=== PATIENT | female | born 1935 | race Caucasian/White ===

== ENCOUNTER 2017-10-22 11:16 | Inpatient (IN) | payer OTHER ==
[2017-10-22] MEDS ORDERED: SODIUM CHLORIDE 0.9% 1000ML 1,000 ML IV SCH (11:30)
[2017-10-22] MEDS ORDERED: DEXTROSE 1000 ML 1,000 ML IV SCH (11:45)
[2017-10-22 11:55] LABS: BASOPHILS % (AUTO) 1 % (0-3); EOSINOPHILS % (AUTO) 0 % (0-9); HEMATOCRIT 55 % (35-47); MEAN CORPUSCULAR HGB CONC 31.8 gm/dl (32.0-36.0); MONOCYTES % (AUTO) 7.3 % (0-12); NEUTROPHILS % (AUTO) 86.4 % (37-80)
[2017-10-22 12:10] LABS: MEAN CORPUSCULAR VOLUME 102 fL (81-99)
[2017-10-22] MEDS ORDERED: CEFTRIAXONE 1 GM PDS 1 GM in SODIUM CHLORIDE 0.9% 100 ML 100 ML IV ONE (12:32)
[2017-10-22] MEDS ORDERED: AZITHROMYCIN 500 MG PDS 500 MG in SODIUM CHLORIDE 0.9% 500 ML 500 ML IV ONE (12:33)
[2017-10-22] MEDS ORDERED: CEFTRIAXONE 1 GM PDS ONE (12:53)
[2017-10-22] MEDS ORDERED: SODIUM CHLORIDE 0.9% 500 ML 500 ML IV ONE (14:15)
[2017-10-22] MEDS ORDERED: AZITHROMYCIN 500 MG PDS IV ONE (14:15)
[2017-10-22] MEDS ORDERED: ACETAMINOPHEN 325 MG PO PRN (15:19)
[2017-10-22] MEDS ORDERED: DILTIAZEM 5 MG/ML SOL IV ONE ×2 (15:34→16:46)
[2017-10-22] MEDS ORDERED: SODIUM CHLORIDE 0.9% 500 ML 500 ML IV SCH (15:45)
[2017-10-22] MEDS ORDERED: POTASSIUM CHLORIDE 2 MEQ/ML SOL IV ONE (15:59)
[2017-10-22] MEDS ORDERED: CAMPHOR TOP PRN (16:00)
[2017-10-22] MEDS ORDERED: ALUMINUM/MAGNESIUM 30 ML SUS PO PRN (16:00)
[2017-10-22] MEDS ORDERED: LOPERAMIDE HYDROCHLORIDE 2 MG CAP PO PRN (16:00)
[2017-10-22] MEDS ORDERED: MENTHOL TOP PRN (16:00)
[2017-10-22] MEDS ORDERED: ONDANSETRON 4 MG ODT PO PRN (16:00)
[2017-10-22] MEDS: SODIUM CHLORIDE 0.9% FLUSH 10 ML SOL IV PRN ×2 (16:12→17:00)
[2017-10-22] MEDS ORDERED: SODIUM CHLORIDE 0.9% 100 ML 100 ML IV ONE (16:46)
[2017-10-22] MEDS: DILTIAZEM 5 MG/ML 125 MG in SODIUM CHLORIDE 0.9% 100 ML 100 ML IV SCH (16:58)
[2017-10-22] MEDS ORDERED: MAGNESIUM HYDROXIDE 30 ML SUS PO SCH (17:00)
[2017-10-22] MEDS: SODIUM CHLORIDE 0.45% 1000 ML 1,000 ML with POTASSIUM CHLORIDE 2 MEQ/ML 20 MEQ IV SCH (18:25)
[2017-10-22] MEDS: BUSPIRONE HCL 5 MG TAB PO SCH (20:48)
[2017-10-22] MEDS: TRIAMCINOLONE 0.1% CREAM CRE TOP SCH (20:48)
[2017-10-22] MEDS ORDERED: RANITIDINE HCL 150 MG TAB PO SCH (21:00)
[2017-10-23] MEDS: ASCORBIC ACID/COPPER/VITAMIN SGL PO SCH ×3 (01:25→20:13)
[2017-10-23] MEDS: SODIUM CHLORIDE 0.45% 1000 ML 1,000 ML with POTASSIUM CHLORIDE 2 MEQ/ML 20 MEQ IV SCH ×2 (04:39→18:12)
[2017-10-23] MEDS ORDERED: DILTIAZEM 5 MG/ML SOL IV ONE ×5 (05:04→16:52)
[2017-10-23] MEDS ORDERED: SODIUM CHLORIDE 0.9% 100 ML 100 ML IV ONE ×4 (05:05→16:49)
[2017-10-23] MEDS: DILTIAZEM 5 MG/ML 125 MG in SODIUM CHLORIDE 0.9% 100 ML 100 ML IV SCH (05:39)
[2017-10-23 07:28] LABS: BASOPHILS % (AUTO) 1 % (0-3); EOSINOPHILS % (AUTO) 0 % (0-9); HEMATOCRIT 47 % (35-47); MEAN CORPUSCULAR HGB CONC 33.2 gm/dl (32.0-36.0); NEUTROPHILS % (AUTO) 82.3 % (37-80)
[2017-10-23 07:29] LABS: MEAN CORPUSCULAR VOLUME 101 fL (81-99)
[2017-10-23] MEDS: SODIUM CHLORIDE 0.9% FLUSH 10 ML SOL IV PRN ×4 (08:03→13:20)
[2017-10-23] MEDS: FUROSEMIDE 20 MG TAB PO SCH (08:56)
[2017-10-23] MEDS: FAMOTIDINE 20 MG TAB PO SCH ×2 (08:56→20:12)
[2017-10-23] MEDS: BUSPIRONE HCL 5 MG TAB PO SCH ×3 (08:56→20:12)
[2017-10-23] MEDS: AZITHROMYCIN 250 MG TAB PO SCH (08:57)
[2017-10-23] MEDS: MULTIVITAMIN2 1 EA TAB PO SCH (08:57)
[2017-10-23] MEDS: CETIRIZINE HYDROCHLORIDE 10 MG TAB PO SCH (08:57)
[2017-10-23] MEDS: VENLAFAXINE HCL 150 MG CER PO SCH (08:58)
[2017-10-23] MEDS ORDERED: AMLODIPINE 5 MG TAB PO SCH (09:00)
[2017-10-23] MEDS: ATENOLOL 25 MG TAB PO SCH ×2 (09:40→20:13)
[2017-10-23] MEDS: TRIAMCINOLONE 0.1% CREAM CRE TOP SCH ×2 (12:06→20:11)
[2017-10-23] MEDS ORDERED: CEFTRIAXONE 1 GM (PREMIX) 1 GM/50 ML SOL IV SCH (12:30)
[2017-10-23] MEDS ORDERED: DILTIAZEM ER 120 MG C24 PO SCH (14:45)
[2017-10-23] MEDS ORDERED: DILTIAZEM 5 MG/ML 125 MG in SODIUM CHLORIDE 0.9% 100 ML 100 ML IV SCH (17:00)
[2017-10-23] MEDS: DILTIAZEM HYDROCHLORIDE 60 MG TAB PO SCH ×2 (17:22→23:31)
[2017-10-23] MEDS ORDERED: POTASSIUM CHLORIDE 2 MEQ/ML SOL IV ONE (18:07)
[2017-10-24] MEDS: SODIUM CHLORIDE 0.45% 1000 ML 1,000 ML with POTASSIUM CHLORIDE 2 MEQ/ML 20 MEQ IV SCH ×2 (04:24→23:16)
[2017-10-24 07:41] LABS: CALCIUM 7.4 mg/dl (8.5-10.1); POTASSIUM 2.2 mMol/L (3.5-5.1)
[2017-10-24 07:48] LABS: BASOPHILS % (AUTO) 1 % (0-3); EOSINOPHILS % (AUTO) 0 % (0-9); HEMATOCRIT 45 % (35-47); MEAN CORPUSCULAR HGB CONC 33.5 gm/dl (32.0-36.0); MONOCYTES % (AUTO) 8.7 % (0-12); NEUTROPHILS % (AUTO) 81.4 % (37-80)
[2017-10-24 07:53] LABS: MEAN CORPUSCULAR VOLUME 100 fL (81-99)
[2017-10-24] MEDS: DILTIAZEM HYDROCHLORIDE 60 MG TAB PO SCH ×3 (08:28→23:58)
[2017-10-24] MEDS ORDERED: POTASSIUM CHLORIDE 2 MEQ/ML SOL IV SCH (09:15)
[2017-10-24] MEDS ORDERED: POTASSIUM CHLORIDE IV SCH (09:15)
[2017-10-24] MEDS ORDERED: SODIUM CHLORIDE 0.9% IV SCH (09:15)
[2017-10-24] MEDS: ATENOLOL 25 MG TAB PO SCH ×2 (09:32→20:04)
[2017-10-24] MEDS: BUSPIRONE HCL 5 MG TAB PO SCH ×3 (09:32→20:06)
[2017-10-24] MEDS: FUROSEMIDE 20 MG TAB PO SCH (09:33)
[2017-10-24] MEDS: MULTIVITAMIN2 1 EA TAB PO SCH (09:33)
[2017-10-24] MEDS: AZITHROMYCIN 250 MG TAB PO SCH (09:33)
[2017-10-24] MEDS: FAMOTIDINE 20 MG TAB PO SCH ×2 (09:33→20:06)
[2017-10-24] MEDS: TRIAMCINOLONE 0.1% CREAM CRE TOP SCH ×2 (09:33→20:05)
[2017-10-24] MEDS: CETIRIZINE HYDROCHLORIDE 10 MG TAB PO SCH (09:33)
[2017-10-24] MEDS: ASCORBIC ACID/COPPER/VITAMIN SGL PO SCH ×2 (09:34→20:23)
[2017-10-24] MEDS: VENLAFAXINE HCL 150 MG CER PO SCH (09:34)
[2017-10-24] MEDS ORDERED: SODIUM CHLORIDE 0.9% 100 ML 100 ML IV ONE (09:51)
[2017-10-24] MEDS ORDERED: POTASSIUM CHLORIDE 2 MEQ/ML SOL IV ONE ×2 (09:51→15:29)
[2017-10-24] MEDS: POTASSIUM CHLORIDE 10 MEQ CAPSULE PO SCH ×3 (10:13→15:42)
[2017-10-24] MEDS ORDERED: POTASSIUM CHLORIDE 10 MEQ TER ONE ×2 (12:09→15:29)
[2017-10-24] MEDS: CEFPROZIL 250 MG/5 ML SUSP.RECON PO SCH ×2 (13:55→20:21)
[2017-10-24] MEDS ORDERED: LIDOCAINE HCL 1% MPF SOL ONE (15:30)
[2017-10-25] MEDS ORDERED: POTASSIUM CHLORIDE 2 MEQ/ML SOL IV ONE (06:46)
[2017-10-25] MEDS: SODIUM CHLORIDE 0.45% 1000 ML 1,000 ML with POTASSIUM CHLORIDE 2 MEQ/ML 20 MEQ IV SCH (06:53)
[2017-10-25 07:52] LABS: BASOPHILS % (AUTO) 1 % (0-3); EOSINOPHILS % (AUTO) 1 % (0-9); HEMATOCRIT 45 % (35-47); MEAN CORPUSCULAR HGB CONC 34.7 gm/dl (32.0-36.0); MONOCYTES % (AUTO) 8.4 % (0-12); NEUTROPHILS % (AUTO) 81.8 % (37-80)
[2017-10-25 07:58] LABS: CALCIUM 7.7 mg/dl (8.5-10.1)
[2017-10-25 08:02] LABS: MEAN CORPUSCULAR VOLUME 99 fL (81-99)
[2017-10-25 08:07] LABS: POTASSIUM 3.2 mMol/L (3.5-5.1)
[2017-10-25 08:31] LABS: NORMAL RBCS PRESENT
[2017-10-25] MEDS: DILTIAZEM HYDROCHLORIDE 60 MG TAB PO SCH (08:45)
[2017-10-25] MEDS: ATENOLOL 25 MG TAB PO SCH (08:51)
[2017-10-25] MEDS: MULTIVITAMIN2 1 EA TAB PO SCH (08:51)
[2017-10-25] MEDS: TRIAMCINOLONE 0.1% CREAM CRE TOP SCH (08:51)
[2017-10-25] MEDS: FUROSEMIDE 20 MG TAB PO SCH (08:52)
[2017-10-25] MEDS: VENLAFAXINE HCL 150 MG CER PO SCH (08:52)
[2017-10-25] MEDS: FAMOTIDINE 20 MG TAB PO SCH (08:52)
[2017-10-25] MEDS: BUSPIRONE HCL 5 MG TAB PO SCH (08:52)
[2017-10-25] MEDS: ASCORBIC ACID/COPPER/VITAMIN SGL PO SCH (08:53)
[2017-10-25] MEDS: AZITHROMYCIN 250 MG TAB PO SCH (08:53)
[2017-10-25] MEDS: CETIRIZINE HYDROCHLORIDE 10 MG TAB PO SCH (08:53)
[2017-10-25 09:19] VITALS: BP 138/90; PULSE 91; RESP 18; TEMP 97.9; O2SAT 95
[2017-10-25] MEDS: CEFPROZIL 250 MG/5 ML SUSP.RECON PO SCH (09:22)
== END 2017-10-25 10:00 | DRG 194 ==
LOC: ED 11:16 → ACUTE CARE 12:53 → UNDOADMIN 12:53 → ACUTE CARE 13:25
PROVIDERS: ADMIT Emergency Medicine; ATTEND Emergency Medicine
DX: J18.1 Lobar pneumonia, unspecified organism (principal); G93.49 Other encephalopathy; E87.0 Hyperosmolality and hypernatremia; E86.0 Dehydration; I48.91 Unspecified atrial fibrillation; G30.9 Alzheimer's disease, unspecified; F02.81 Dementia in other diseases classified elsewhere, unspecified severity, with behavioral disturbance; N39.0 Urinary tract infection, site not specified; R32 Unspecified urinary incontinence; R15.9 Full incontinence of feces
CPT/HCPCS: 36415; 70450; 71010; 80048; 80053; 84132; 84295; 85025; 85027; 93005; 93012; 96365; 99070; 99238; 99284; 99285; J0456; J0696; J3480; P9016; J2001

== ENCOUNTER 2017-10-28 17:20 | Emergency (ER) | payer OTHER ==
[2017-10-28 17:30] VITALS: TEMP 97
[2017-10-28] MEDS ORDERED: CLOTRIMAZOLE 1% CREAM TOP ONE (17:38)
[2017-10-28] MEDS ORDERED: SODIUM CHLORIDE 0.9% 1000ML 1,000 ML IV SCH (17:45)
[2017-10-28 18:06] LABS: BASOPHILS % (AUTO) 2 % (0-3); EOSINOPHILS % (AUTO) 0 % (0-9); HEMATOCRIT 53 % (35-47); MEAN CORPUSCULAR HGB CONC 32.3 gm/dl (32.0-36.0); MONOCYTES % (AUTO) 5.7 % (0-12); NEUTROPHILS % (AUTO) 84.3 % (37-80)
[2017-10-28 18:07] LABS: MEAN CORPUSCULAR VOLUME 101 fL (81-99)
[2017-10-28 18:15] LABS: APPEARANCE,URINE Slightly Cloudy; BILIRUBIN,URINE 2+ (NEGATIVE); COLOR,URINE Yellow; GLUCOSE, URINE (UA) NEGATIVE (NEGATIVE); KETONES,URINE 1+ (NEGATIVE); LEUKOCYTE ESTERASE ,URINE NEGATIVE (NEGATIVE); NITRATE,URINE NEGATIVE (NEGATIVE); OCCULT BLOOD,URINE 2+ (NEG-TRACE); UROBILINOGEN,URINE 0.2 (0.2-1.0 EU)
[2017-10-28 18:17] LABS: CALCIUM 8.9 mg/dl (8.5-10.1); POTASSIUM 4.3 mMol/L (3.5-5.1)
[2017-10-28 18:19] LABS: ICTOTEST,URINE NEGATIVE (NEGATIVE)
[2017-10-28] MEDS ORDERED: LACTATED RINGERS 1,000 ML IV ONE (18:59)
[2017-10-28 20:13] VITALS: BP 103/83; PULSE 110; RESP 20; O2SAT 90
== END 2017-10-28 20:27 | DRG 640 ==
LOC: ED 17:20
DX: R62.7 Adult failure to thrive (principal); J18.1 Lobar pneumonia, unspecified organism; E87.0 Hyperosmolality and hypernatremia; F03.90 Unspecified dementia, unspecified severity, without behavioral disturbance, psychotic disturbance, mood disturbance, and anxiety
CPT/HCPCS: 36415; 80048; 81001; 85025; 99284